=== PATIENT | female | born 1970 | race Caucasian/White ===

== ENCOUNTER 2024-12-13 08:45 | Emergency (ER) | payer BC, SELFPAY ==
[2024-12-13 09:14] VITALS: BP 146/88; PULSE 80; RESP 18; TEMP 37; O2SAT 97; BMI 37.8
--- NOTE | 2024-12-13 09:25 | XR_ITS ---
Examination: Abdomen sonogram, Limited Date and time of exam: December 13, 2024, 0953 hrs. Indications: Onset right upper abdominal pain beginning 5 days ago Technique: Real-time caballero scale transabdominal sonographic images of the upper abdomen obtained. Findings: Normal gallbladder. Normal common bile duct 0.2 cm. Pancreatic head 2.1 cm Liver 16.7 cm no focal liver lesions Normal hepatopedal portal venous oh. Patent IVC. Impression: Normal gallbladder. Mild hepatomegaly
--- NOTE | 2024-12-13 09:25 | PD.EDRME ---
Rapid Medical Screening Exam E Arrival date/time: 12/13/24 08:45 This is a 53-year-old female that comes in with complaints of abdominal pain right sided for the past week. Patient states that it is waxing and waning with intensity this week. Patient denies any nausea vomiting diarrhea. Patient denies fever. Patient does complain of urinary frequency but no dysuria no oliguria. Patient does have history of C-sections and breast augmentation. I have greeted and performed a focused initial assessment of this patient. Initial appropriate labs ordered at this time. A comprehensive ED assessment and evaluation of the patient and analysis of all test and completion of medical decision making process will be conducted by additional ED provider. Chief Complaint: Abdominal Pain Time Seen by Provider: 12/13/24 09:05 Vital signs: Vital Signs Temperature 98.6 F 12/13/24 09:14 Pulse Rate 80 12/13/24 09:14 Respiratory Rate 18 12/13/24 09:14 Blood Pressure 146/88 H 12/13/24 09:14 Pulse Oximetry (%) 97 12/13/24 09:14 Oxygen Delivery Method Room Air 12/13/24 09:14
[2024-12-13 10:26] LABS: Basophils % (Auto) 0 % (0-2.5); Eosinophils # (Auto) 0.3 Thou/mm3 (0.0-0.5); Eosinophils % (Auto) 2 % (0-10); Hematocrit 39.3 % (36.0-46.0); Hemoglobin 13.1 g/dL (12.0-16.0); Immature Granulocytes % (Auto) 0 % (0-0); Immature Granulocytes Auto 0.03 Thou/mm3 (0.00-0.00); Lymphocytes # (Auto) 3.2 Thou/mm3 (1.0-4.8); Lymphocytes % (Auto) 29 % (10-50); Mean Corpuscular HGB Conc 33.3 g/dl (31.0-37.0); Mean Corpuscular Hemoglobin 26.7 pg (25.0-35.0); Mean Corpuscular Volume 80 fL (80-100); Monocytes # (Auto) 0.9 Thou/mm3 (0.0-0.8); Monocytes % (Auto) 8 % (0-12); Neutrophils # (Auto) 6.7 Thou/mm3 (1.8-7.7); Neutrophils % (Auto) 60 % (37-80); Nucleated Red Blood Cell % 0 /100 WBC (0); Platelet Count 305 Thou/mm3 (140-440); RDW Standard Deviation 41.1 fL (36.4-46.3); Red Blood Count 4.91 Miln/mm3 (4.00-5.20); White Blood Count 11.2 Thou/mm3 (3.6-11.0)
[2024-12-13 10:45] LABS: Alanine Aminotransferase 24 U/L (10-49); Albumin, Serum 4.5 gm/dL (3.5-5.0); Albumin/Globulin Ratio 1.6 (1.2-2.2); Alkaline Phosphatase 152 U/L (46-116); Anion Gap 8 (7-16); Aspartate Amino Transferase 25 U/L (0-34); BUN/Creatinine Ratio 13 Ratio (12-20); Bilirubin,Total 0.6 mg/dL (0.3-1.2); Blood Urea Nitrogen 10 mg/dL (9-23); Calcium 9.3 mg/dL (8.3-10.6); Calcium (Corrected) 9.3 mg/dL (8.5-10.1); Carbon Dioxide 28.4 mMol/L (20.0-31.0); Chloride 104 mMol/L (98-107); Creatinine (Component) 0.8 mg/dL (0.6-1.3); Estimated Creatinine Clearance 100.2 mL/min (>60); Globulin 2.8 gm/dL (2.3-3.5); Glucose 118 mg/dL (74-106); Lipase 29 U/L (12-53); Osmolality,Calculated 279 (275-295); Sodium 140 mMol/L (136-145); Total Protein 7.3 gm/dL (5.7-8.2); eGFR > 60 See Note
--- NOTE | 2024-12-13 11:56 | PD.EDABDPN ---
ED Abdominal Pain RME/HPI General Chief Complaint: Abdominal Pain Stated complaint: RIGHT ABD PAIN X 4 DAYS; DIARRHEA Time seen by provider: 12/13/24 09:05 Arrival date/time: 12/13/24 08:45 RME / HPI RME / HPI narrative: 53-year-old female that comes in with complaints of abdominal pain right sided for the past week. Patient states that it is waxing and waning with intensity this week. Patient denies any nausea vomiting diarrhea. Patient denies fever. Patient does complain of urinary frequency but no dysuria no oliguria. Patient denies any fever. Denies any anorexia. Denies any other complaints. Patient does have history of C-sections and breast augmentation. Related Data Home Medications ?Medication ?Instructions ?Recorded ?Confirmed albuterol sulfate 90 mcg/actuation 1 inh inhalation BID PRN Shortness 11/08/23 11/08/23 aerosol inhaler Of Breath Or Wheezing cetirizine 10 mg tablet (Zyrtec) 10 mg PO QDAY 11/08/23 11/08/23 hydrochlorothiazide 12.5 mg tablet 12.5 mg PO HS 11/08/23 11/08/23 Previous Rx's ?Medication ?Instructions ?Recorded lactulose 10 gram/15 mL oral 20 g (30 mL) PO BID PRN 12/13/24 solution constipation #473 mL Allergies Allergy/AdvReac Type Severity Reaction Status Date / Time No Known Allergies Allergy Verified 12/13/24 08:49 Review of Systems Review of Systems Narrative Review of Systems: Review of system reviewed and within normal limits except mentioned in HPI ED Exam Narrative Physical exam: VITAL SIGNS: Reviewed. GENERAL APPEARANCE: Alert and interactive, follows commands, no acute distress, HEAD AND FACE: Non-traumatic. ENT: PERRL, pink conjunctivitis, eyelid no trauma, Mucous membrane moist. NECK: Supple, nontender, no nuchal rigidity. CHEST: No tenderness, no crepitus, no paradoxical movement, no retractions. LUNGS: Clear, well ventilated, symmetric, no rales, no wheezing, no ronchi, no stridor, good breath sounds bilaterally. HEART: Regular rate, regular rhythm, no murmur, no gallops. ABDOMEN: Soft, positive bowel sounds, nondistended, no guarding, nontender, no rebound, no masses, RECTAL: Deferred. GENITAL: Deferred. NEUROLOGICAL: Gross motor function intact sensory function intact, Appropriate for age. MUSCULOSKELETAL: low back nontender, full range of motion. EXTREMITIES: Nontender, full range of motion. SKIN: Color pink, dry, no rash, no lacerations, no abrasions, no contusions. LYMPHATICS: Deferred. Course Quality Measures none Orders Category Date Time Status US abdomen limited Stat Exams 12/13/24 09:25 Completed CBC Stat Lab 12/13/24 10:18 Completed Comprehensive Metabolic Panel Stat Lab 12/13/24 10:18 Completed Lipase Stat Lab 12/13/24 10:18 Completed Vital Signs Vital signs: Vital Signs Temperature 98.6 F 12/13/24 09:14 Pulse Rate 80 12/13/24 09:14 Respiratory Rate 18 12/13/24 09:14 Blood Pressure 146/88 H 12/13/24 09:14 Pulse Oximetry (%) 97 12/13/24 09:14 Oxygen Delivery Method Room Air 12/13/24 09:14 Abdominal Pain MDM MDM Narrative MDM Narrative:: 53-year-old female that comes in with complaints of abdominal pain right sided for the past week. Patient states that it is waxing and waning with intensity this week. Patient denies any nausea vomiting diarrhea. Patient denies fever. Patient does complain of urinary frequency but no dysuria no oliguria. Patient denies any fever. Denies any anorexia. Denies any other complaints. Patient does have history of C-sections and breast augmentation. Laboratory workup all came back unremarkable. Patient data External records reviewed:: None Clinical information provided by:: patient and family Social determinants that could affect healthcare access:: none Patient has the following chronic illnesses:: None How is presenting disease/condition affected by chronic disease/condition?: no chronic disease Evaluation data The following diagnostics were reviewed and interpreted by me:: lab results and radiology exam(s) Lab and/or radiology exams considered but not ordered:: None Interpretation Summary: Patient's lupus workup all came back unremarkable except for slight leukocytosis of 11.2 CMP unremarkable ultrasound of the gallbladder came back normal Medications / Prescriptions Medications or Prescriptions considered but not ordered:: None Medication administrations:: None Consultations Consultation(s) initiated? (list below): No Diagnosis Differential diagnosis abdominal pain: abdominal pain, constipation and other (Gallstone) Most likely diagnosis given after review of the tests above:: Abdominal pain, constipation Admission Indicated Admission indicated?: not indicated Admission Request Was there a request for admission?: No Disposition Plan Disposition Plan: Discharge Discharge Attestation Discharge Attestation: The patient and all family members were given an opportunity to ask questions and understood the discharge instructions. Discharge instructions specifically effects, indications for sooner follow up or return to the emergency department, and the expected course of current diagnosis. Patient condition: Stable Discharge Plan Plan Patient Disposition: HOME (Self Care) Discharge Disposition comment: stable Prescriptions/Referrals Prescriptions/Med Rec: New lactulose 10 gram/15 mL solution 20 g PO BID PRN (Reason: constipation) Qty: 473 [id number] No Action cetirizine [Zyrtec] 10 mg Tablet 10 mg PO QDAY albuterol sulfate 90 mcg/actuation HFA aerosol inhaler 1 inh INHALATION BID PRN (Reason: Shortness Of Breath Or Wheezing) Patient Comments: INHALE 1 PUFF BY MOUTH TWICE A DAY hydrochlorothiazide 12.5 mg Tablet 12.5 mg PO HS Referrals: Jovon Millard MD [Primary Care Provider] - In 1 week Problem List Clinical Impression: Abdominal pain, Constipation Patient/Caregiver Discharge Instructions Discharge Activity: activity as tolerated Education Materials: ED Constipation (Adult) Additional Instructions: Thank you for the opportunity for serving you today. You are stable for discharged . You are advised to: Follow-up with your PCP in 1 to 2 days Return to ED for worsening of symptoms Increase oral fluids Take medication as prescribed Print Language: Argentine Stand Alone Forms: Kamala Award Info., Patient Portal Info Letter BROOK/SAMMY Supervising Physician NAHID Supervising Physician: MD Maria Esther
[2024-12-13 12:10] VITALS: BP 156/97; PULSE 68; RESP 18; TEMP 36.9; O2SAT 98
== END 2024-12-13 12:11 | disposition home or self-care (01) ==
PROVIDERS: Nurse Practitioner Family; Emergency Provider Emergency Medicine; PCP Internal Medicine
DX: R10.9 Unspecified abdominal pain (principal); K59.00 Constipation, unspecified
CPT/HCPCS: 36415; 76705; 80053; 81001; 81025; 83690; 85025; 99284